=== PATIENT | male | born 1940 | race Caucasian/White ===

== ENCOUNTER → 2020-12-31 | Outpatient (CLI) | payer BC | LOC: VAS 10:05 | DX: R60.0 Localized edema (principal); M79.89 Other specified soft tissue disorders ==

== ENCOUNTER → 2022-02-16 | Outpatient (CLI) | payer BC | LOC: VAS 13:50 → RAD 14:00 → VAS 14:00 | DX: M79.662 Pain in left lower leg (principal); M79.89 Other specified soft tissue disorders ==